=== PATIENT | female | born 1990 | race African-American/Black ===

== ENCOUNTER 2017-06-27 17:28 | Emergency (ER) | payer OTHER ==
[~2017-06-27] VITALS: Ht 166.4 cm; Wt 84.1 kg
[~2017-06-27 17:28] MED LIST: PERC5TAB12 PO
[2017-06-27 17:29] VITALS: BP 138/98; PULSE 93; RESP 16; TEMP 99.9; O2SAT 95
[2017-06-27] MEDS ORDERED: IOHEXOL 350 MG/ML 10 ML VIAL (for RAD DIAG) IVCONTRAST ONE (17:29)
--- NOTE | 2017-06-27 18:19 | RADRPT ---
EXAM DATE/TIME: 06/27/2017 17:59 [facility] COMPARISON: No previous studies available for comparison. INDICATIONS : Cough and short of breath. MEDICAL HISTORY : None. SURGICAL HISTORY : None. ENCOUNTER: Initial ACUITY: 1 week PAIN SCORE: 0/10 LOCATION: Bilateral chest FINDINGS: PA and lateral views of the chest demonstrate mild indistinctness of left hemidiaphragm could indicat e a small lingular pneumonia. The cardiomediastinal contours are unremarkable. Osseous structures a re intact. CONCLUSION: Question of peripheral infiltrate in the lingula could be a small area of pneumonia. Shimon May MD on June 27, 2017 at 18:16 Board Certified Radiologist. This report was verified electronically.
[2017-06-27 19:56] LABS: AUTOMATED NEUTROPHIL # 7.7 TH/MM3 (1.8-7.7); BASOPHIL % 0.3 % (0.0-2.0); EOSINOPHIL % 0.2 % (0.0-4.0); HEMATOCRIT 37.1 % (35.0-46.0); HEMOGLOBIN 12.3 GM/DL (11.6-15.3); LYMPH % 27.8 % (9.0-44.0); LYMPHOCYTE # 3.3 TH/MM3 (1.0-4.8); MEAN CELL VOLUME 80.6 FL (80.0-100.0); MEAN CORPUSCULAR HEMOGLOBIN 26.7 PG (27.0-34.0); MEAN CORPUSCULAR HGB CONC 33.1 % (32.0-36.0); MEAN PLATELET VOLUME 9.8 FL (7.0-11.0); MONO % 7.5 % (0.0-8.0); MONOCYTE # 0.9 TH/MM3 (0-0.9); NEUT % 64.2 % (16.0-70.0); PLATELET COUNT 174 TH/MM3 (150-450); RED CELL DISTRIBUTION WIDTH 19.6 % (11.6-17.2); WHITE BLOOD COUNT 11.9 TH/MM3 (4.0-11.0)
[2017-06-27 20:08] LABS: ALT (GPT) 53 U/L (10-53); AST (GOT) 47 U/L (15-37); BICARBONATE 27.5 MEQ/L (21.0-32.0); BLOOD UREA NITROGEN 17 MG/DL (7-18); CALCIUM 8.7 MG/DL (8.5-10.1); CHLORIDE 106 MEQ/L (98-107); CREATININE 0.94 MG/DL (0.50-1.00); GLOMERULAR FILTRATION RATE 88 ML/MIN (>89); GLUCOSE,RANDOM 88 MG/DL (74-106); SODIUM (NA) 139 MEQ/L (136-145)
[2017-06-27 20:11] LABS: ALKALINE PHOSPHATASE 56 U/L (45-117); TOTAL BILIRUBIN ADULT 0.2 MG/DL (0.2-1.0)
--- NOTE | 2017-06-27 23:52 | PD ---
HPI Chief Complaint: Cold / Flu Symptoms Time Seen by Provider: 23:30 Travel History International Travel<30 days: No Contact w/Intl Traveler<30days: No Traveled to known affect area: No History of Present Illness HPI 27-year-old female here for evaluation of cough, nasal congestion, runny nose, sore throat, nausea, vomiting, diarrhea, abdominal pain, generalized malaise, body aches. Symptoms started on 06/20/17 with upper respiratory symptoms. Since yesterday she has been having lower abdominal pain, nausea, vomiting, and diarrhea. Her cough has been productive of yellow/greenish sputum, and today she noticed some blood-streaked sputum. She denies history of DVT or PE. She does feel somewhat short of breath. No abdominal pain is described as cramping , mild to moderate, worse with movement and palpation. She denies urinary symptoms. No vaginal bleeding or discharge. LMP was 2 weeks ago. States that her sister at home had upper respiratory symptoms a couple weeks ago. Patient was initially evaluated in triage, and by the time she was brought back to an exam room, basic labs and a chest x-ray were performed. She is febrile with a tympanic temp of 99.9F. CBC is essentially unremarkable. CMP is essentially unremarkable. Influenza is negative. Group A strep is negative. Chest x-ray shows question of peripheral infiltrate in the lingula could be a small area of pneumonia. PFSH Past Medical History Diminished Hearing: No Respiratory: Yes (bronchitis) Immunizations Current: Yes Influenza Vaccination: Yes ?: Not LMP: 06/20/17 Past Surgical History Surgical History: No Previous Surgery Social History Alcohol Use: Yes (OCC) Tobacco Use: Yes Substance Use: Yes (thc) Allergies-Medications (Allergen,Severity, Reaction): Coded Allergies: Sulfa (Sulfonamide Antibiotics) (Unverified Allergy, Unknown, 06/27/17) Reported Meds & Prescriptions Reported Meds & Active Scripts Active Review of Systems Except as stated in HPI: all other systems reviewed are Neg Physical Exam Narrative GENERAL: Well-developed, well-nourished, comfortable, no apparent distress. SKIN: Focused skin assessment warm/dry. No rash. HEAD: Atraumatic. Normocephalic. EYES: Pupils equal and round. No scleral icterus. No injection or drainage. ENT: No nasal bleeding or discharge. Mucous membranes pink and dry. Normal pharynx. NECK: Trachea midline. No JVD. No nuchal rigidity. CARDIOVASCULAR: Regular rate and rhythm. No murmur appreciated. RESPIRATORY: No accessory muscle use. Clear to auscultation. Breath sounds equal bilaterally. GASTROINTESTINAL: Abdomen soft, nondistended. Moderate right lower quadrant and suprapubic tenderness without peritoneal signs. Rest of abdomen is soft and nontender. Normal bowel sounds. No hernias. MUSCULOSKELETAL: No obvious deformities. No clubbing. No cyanosis. No edema. NEUROLOGICAL: Awake and alert. No obvious cranial nerve deficits. Motor grossly within normal limits. Normal speech. PSYCHIATRIC: Appropriate mood and affect; insight and judgment normal. Data Data Last Documented VS Vital Signs Date Time Temp Pulse Resp B/P (MAP) Pulse Ox O2 Delivery O2 Flow Rate FiO2 06/27/17 17:29 99.9 93 16 138/98 (111) 95 Orders Orders Complete Blood Count With Diff (06/27/17 17:48) Comprehensive Metabolic Panel (06/27/17 17:48) Group A Rapid Strep Screen (06/27/17 17:48) Influenzae A/B Antigen (06/27/17 17:48) Chest, Pa & Lat (06/27/17 17:48) Strep Culture (Group A) (06/27/17 19:21) Electrocardiogram (06/27/17 ) Ed Urine Pregnancytest Poc (06/27/17 23:40) Creatine Kinase (Cpk) (06/27/17 23:40) Urinalysis - C+S If Indicated (06/27/17 23:49) Sodium Chlor 0.9% 1000 Ml Inj (Ns 1000 M (06/28/17 00:00) Ct Pulmonary Angiogram (06/27/17 ) Acetaminophen (Tylenol) (06/28/17 00:00) Ct Abd/Pel W Iv Contrast(Rout) (06/27/17 ) CKMB (06/28/17 00:00) CKMB% (06/28/17 00:00) Sodium Chlor 0.9% 1000 Ml Inj (Ns 1000 M (06/28/17 00:45) Ketorolac Inj (Toradol Inj) (06/28/17 00:45) Ceftriaxone Inj (Rocephin Inj) (06/28/17 01:00) Labs Laboratory Tests Test 06/27/17 19:21 06/28/17 00:00 White Blood Count 11.9 TH/MM3 Red Blood Count 4.60 MIL/MM3 Hemoglobin 12.3 GM/DL Hematocrit 37.1 % Mean Corpuscular Volume 80.6 FL Mean Corpuscular Hemoglobin 26.7 PG Mean Corpuscular Hemoglobin Concent 33.1 % Red Cell Distribution Width 19.6 % Platelet Count 174 TH/MM3 Mean Platelet Volume 9.8 FL Neutrophils (%) (Auto) 64.2 % Lymphocytes (%) (Auto) 27.8 % Monocytes (%) (Auto) 7.5 % Eosinophils (%) (Auto) 0.2 % Basophils (%) (Auto) 0.3 % Neutrophils # (Auto) 7.7 TH/MM3 Lymphocytes # (Auto) 3.3 TH/MM3 Monocytes # (Auto) 0.9 TH/MM3 Eosinophils # (Auto) 0.0 TH/MM3 Basophils # (Auto) 0.0 TH/MM3 CBC Comment DIFF FINAL Differential Comment Blood Urea Nitrogen 17 MG/DL Creatinine 0.94 MG/DL Random Glucose 88 MG/DL Total Protein 8.0 GM/DL Albumin 4.0 GM/DL Calcium Level 8.7 MG/DL Alkaline Phosphatase 56 U/L Aspartate Amino Transf (AST/SGOT) 47 U/L Alanine Aminotransferase (ALT/SGPT) 53 U/L Total Bilirubin 0.2 MG/DL Sodium Level 139 MEQ/L Potassium Level 3.6 MEQ/L Chloride Level 106 MEQ/L Carbon Dioxide Level 27.5 MEQ/L Anion Gap 6 MEQ/L Estimat Glomerular Filtration Rate 88 ML/MIN Total Creatine Kinase 961 U/L MDM Medical Decision Making Medical Screen Exam Complete: Yes Emergency Medical Condition: Yes Medical Record Reviewed: Yes Interpretation(s) EKG: Sinus, rate 64, normal axis, normal intervals, no acute ischemic abnormality. Differential Diagnosis Pneumonia, influenza, bronchitis, PE, appendicitis, UTI, cystitis, rhabdomyolysis Narrative Course Initial vital signs show heart rate 93, blood pressure 138/98, pulse ox 95% on room air, oral tympanic temp of 99.9F. CBC: WBC 11.9, hemoglobin 12.3, hematocrit 37.1, platelets 174. CMP is unremarkable. Total CK is 961 Influenza is negative. Group A strep is negative. Chest x-ray: CONCLUSION: Question of peripheral infiltrate in the lingula could be a small area of pneumonia. At approximately 1 am at the end of my shift the patient was left with my PA Anthony Dickerson to follow up with CTs and disposition. Genaro Olmstead MD Jun 27, 2017 23:52
[2017-06-28] MEDS ORDERED: ACETAMINOPHEN 325 MG TAB PO ONE
[2017-06-28] MEDS ORDERED: SODIUM CHLOR 0.9% 1000 ML INJ 1,000 ML IV ONE ×2 (00:45)
[2017-06-28] MEDS ORDERED: KETOROLAC TROMETHAMINE 30 MG/ML (IVP) VIAL IV PUSH ONE (00:45)
[2017-06-28] MEDS ORDERED: cefTRIAXone INJ 1,000 MG in SODIUM CHLORIDE 0.9% INJ 100 ML IV ONE (01:00)
--- NOTE | 2017-06-28 01:14 | RADRPT ---
EXAM DATE/TIME: 06/28/2017 00:53 [facility] COMPARISON: No previous studies available for comparison. INDICATIONS : Pneumonia versus pulmonary emboli. Pain past 5 days. IV CONTRAST: 77 cc Omnipaque 350 (iohexol) IV ; Cumulative dose for multiple exams. RADIATION DOSE: 18.23 CTDIvol (mGy) MEDICAL HISTORY : None SURGICAL HISTORY : None. ENCOUNTER: Initial ACUITY: 4 - 6 days PAIN SCALE: 10/10 LOCATION: facial TECHNIQUE: Volumetric scanning of the chest was performed using a pulmonary embolism protocol MIP images were re constructed. Using automated exposure control and adjustment of the mA and/or kV according to patien t size, radiation dose was kept as low as reasonably achievable to obtain optimal diagnostic quality images. DICOM format image data is available electronically for review and comparison. Follow-up recommendations for detected pulmonary nodules are based at a minimum on nodule size and pa tient risk factors according to Fleischner Society Guidelines. FINDINGS: Examination of the pulmonary vasculature demonstrates good filling of the main, lobar and segmental b ranches. There are no filling defects to suggest pulmonary embolism. Multiplanar reconstructions are also unremarkable. There is left lower lobe atelectasis versus pneumonia. No pulmonary nodules are identified. No pleura l effusions are identified. Examination of the mediastinum demonstrates no abnormally enlarged lymph nodes by CT criteria. No axillary or hilar abnormalities are identified. Coronary artery calcificatio ns are not present. The visualized upper abdomen demonstrates no abnormality. CONCLUSION: 1. No evidence of pulmonary embolism. 2. Left lower lobe atelectasis versus pneumonia. Rudy Wu MD on June 28, 2017 at 1:10 Board Certified Radiologist. This report was verified electronically.
--- NOTE | 2017-06-28 01:19 | RADRPT ---
EXAM DATE/TIME: 06/28/2017 00:53 [facility] COMPARISON: CT ABDOMEN & PELVIS W CONTRAST, October 29, 2014, 20:10. INDICATIONS : Abdomen pain past 5 days. IV CONTRAST: 77 cc Omnipaque 350 (iohexol) IV ; Cumulative dose for multiple exams. ORAL CONTRAST: No oral contrast ingested. RADIATION DOSE: 11.80 CTDIvol (mGy) MEDICAL HISTORY : None SURGICAL HISTORY : None. ENCOUNTER: Initial ACUITY: 4 - 6 days PAIN SCALE: 5/10 LOCATION: Bilateral abdomen TECHNIQUE: Volumetric scanning of the abdomen and pelvis was performed. Using automated exposure control and ad justment of the mA and/or kV according to patient size, radiation dose was kept as low as reasonably achievable to obtain optimal diagnostic quality images. DICOM format image data is available electro nically for review and comparison. FINDINGS: There is left lower lobe atelectasis versus pneumonia. The liver and spleen are free of focal defects . The gallbladder and pancreas demonstrate no abnormality. The adrenal glands are normal. The kidneys demonstrate no evidence of solid renal mass or hydronephrosis. No free fluid or abdominal masses are identified. No para-aortic adenopathy is seen. Examination of the pelvis demonstrates no evidence of free fluid or pelvic mass. No abnormally enlarged inguinal or retroperitoneal lymph nodes are presen t. The bladder is unremarkable. CONCLUSION: 1. No evidence of acute abdominal or pelvic process. No masses are identified. 2. Left lower lobe atelectasis versus pneumonia. Rudy Wu MD on June 28, 2017 at 1:13 Board Certified Radiologist. This report was verified electronically.
[2017-06-28] MEDS ORDERED: AZITHROMYCIN 250 MG TAB PO ONE (01:30)
[2017-06-28 01:50] LABS: BACTERIA, URINE RARE /hpf; BILIRUBIN, URINE NEG (NEG); BLOOD, URINE NEG (NEG); GLUCOSE,URINE NEG (NEG); KETONE, URINE TRACE mg/dL (NEG); MUCUS URINE FEW /lpf (OCC); NITRITE,URINE NEG (NEG); SQUAMOUS EPITHELIAL CELL URINE 5 /hpf (0-5); URINE COLOR YELLOW (YELLW/STRAW); URINE LEUKOCYTE ESTERASE NEG (NEG)
[2017-06-28] MEDS ORDERED: ZITHTAB PO (02:39)
[2017-06-28] MEDS ORDERED: ZOFR8TAB4 SL (02:39)
--- NOTE | 2017-06-28 02:42 | PD ---
Physical Exam Date Seen by Provider: Jun 28, 2017 Time Seen by Provider: 02:40 Data Data Last Documented VS Vital Signs Date Time Temp Pulse Resp B/P (MAP) Pulse Ox O2 Delivery O2 Flow Rate FiO2 06/27/17 17:29 99.9 93 16 138/98 (111) 95 Orders Orders Complete Blood Count With Diff (06/27/17 17:48) Comprehensive Metabolic Panel (06/27/17 17:48) Group A Rapid Strep Screen (06/27/17 17:48) Influenzae A/B Antigen (06/27/17 17:48) Chest, Pa & Lat (06/27/17 17:48) Strep Culture (Group A) (06/27/17 19:21) Electrocardiogram (06/27/17 ) Ed Urine Pregnancytest Poc (06/27/17 23:40) Creatine Kinase (Cpk) (06/27/17 23:40) Urinalysis - C+S If Indicated (06/27/17 23:49) Sodium Chlor 0.9% 1000 Ml Inj (Ns 1000 M (06/28/17 00:00) Ct Pulmonary Angiogram (06/27/17 ) Acetaminophen (Tylenol) (06/28/17 00:00) Ct Abd/Pel W Iv Contrast(Rout) (06/27/17 ) CKMB (06/28/17 00:00) CKMB% (06/28/17 00:00) Sodium Chlor 0.9% 1000 Ml Inj (Ns 1000 M (06/28/17 00:45) Ketorolac Inj (Toradol Inj) (06/28/17 00:45) Ceftriaxone Inj (Rocephin Inj) (06/28/17 01:00) Iohexol 350 Inj (Omnipaque 350 Inj) (06/27/17 17:29) Azithromycin (Zithromax) (06/28/17 01:30) Ondansetron Inj (Zofran Inj) (06/28/17 02:45) Labs Laboratory Tests Test 06/27/17 19:21 06/28/17 00:00 06/28/17 01:35 White Blood Count 11.9 TH/MM3 Red Blood Count 4.60 MIL/MM3 Hemoglobin 12.3 GM/DL Hematocrit 37.1 % Mean Corpuscular Volume 80.6 FL Mean Corpuscular Hemoglobin 26.7 PG Mean Corpuscular Hemoglobin Concent 33.1 % Red Cell Distribution Width 19.6 % Platelet Count 174 TH/MM3 Mean Platelet Volume 9.8 FL Neutrophils (%) (Auto) 64.2 % Lymphocytes (%) (Auto) 27.8 % Monocytes (%) (Auto) 7.5 % Eosinophils (%) (Auto) 0.2 % Basophils (%) (Auto) 0.3 % Neutrophils # (Auto) 7.7 TH/MM3 Lymphocytes # (Auto) 3.3 TH/MM3 Monocytes # (Auto) 0.9 TH/MM3 Eosinophils # (Auto) 0.0 TH/MM3 Basophils # (Auto) 0.0 TH/MM3 CBC Comment DIFF FINAL Differential Comment Blood Urea Nitrogen 17 MG/DL Creatinine 0.94 MG/DL Random Glucose 88 MG/DL Total Protein 8.0 GM/DL Albumin 4.0 GM/DL Calcium Level 8.7 MG/DL Alkaline Phosphatase 56 U/L Aspartate Amino Transf (AST/SGOT) 47 U/L Alanine Aminotransferase (ALT/SGPT) 53 U/L Total Bilirubin 0.2 MG/DL Sodium Level 139 MEQ/L Potassium Level 3.6 MEQ/L Chloride Level 106 MEQ/L Carbon Dioxide Level 27.5 MEQ/L Anion Gap 6 MEQ/L Estimat Glomerular Filtration Rate 88 ML/MIN Total Creatine Kinase 961 U/L Creatine Kinase MB 1.7 NG/ML Creatine Kinase MB % 0.2 % Urine Color YELLOW Urine Turbidity CLEAR Urine pH 6.0 Urine Specific [place] GREATER THAN 1.050 Urine Protein TRACE mg/dL Urine Glucose (UA) NEG mg/dL Urine Ketones TRACE mg/dL Urine Occult Blood NEG Urine Nitrite NEG Urine Bilirubin NEG Urine Urobilinogen LESS THAN 2.0 MG/DL Urine Leukocyte Esterase NEG Urine RBC 1 /hpf Urine WBC 1 /hpf Urine Squamous Epithelial Cells 5 /hpf Urine Bacteria RARE /hpf Urine Mucus FEW /lpf Microscopic Urinalysis Comment CULT NOT INDICATED MDM Medical Record Reviewed: Yes Supervised Visit with CATRACHITO: Yes Interpretation(s) UA: Concentrated specimen but no UTI. CBC & BMP Diagram 06/27/17 19:21 Total Protein 8.0, Albumin 4.0, Calcium Level 8.7, Alkaline Phosphatase 56, Aspartate Amino Transf (AST/SGOT) 47 H, Alanine Aminotransferase (ALT/SGPT) 53, Total Bilirubin 0.2 Last 24 hours Impressions Chest X-Ray 06/27/17 [id number] Signed Impressions: Service Date/Time: Tuesday, June 27, 2017 17:59 - CONCLUSION: Question of peripheral infiltrate in the lingula could be a small area of pneumonia. Shimon May MD CT Angiography 06/27/17 0000 Signed Impressions: Service Date/Time: Wednesday, June 28, 2017 00:53 - CONCLUSION: 1. No evidence of pulmonary embolism. 2. Left lower lobe atelectasis versus pneumonia. Rudy Wu MD Abdomen/Pelvis CT 06/27/17 0000 Signed Impressions: Service Date/Time: Wednesday, June 28, 2017 00:53 - CONCLUSION: 1. No evidence of acute abdominal or pelvic process. No masses are identified. 2. Left lower lobe atelectasis versus pneumonia. Rudy Wu MD Differential Diagnosis . Narrative Course The patient's CAT scan reveals no acute intra-abdominal process. CAT scan of the chest shows no PE but does reconfirm atelectasis versus infiltrate. With the patient's presenting symptoms we will treat for pneumonia. Patient was given Rocephin IV 1 g and Zithromax 500 mg by mouth along was Zofran 4 mg IV. This is pneumonia Diagnosis Primary Impression: acute pneumonia Patient Instructions: General Instructions Departure Forms: Tests/Procedures, Work Release Special Instructions: No work 3 days. Additional Instruction: Rest. Increase fluids. Tylenol and Advil. Robitussin-DM. Zithromax and Zofran.. Followup with your Dr. in 3-5 days. Return to the ER for any problems. Med/Other Pt SpecificInfo: Prescription(s) given Scripts Ondansetron Odt (Zofran Odt) 8 Mg Tab 8 MG SL Q8HR for Nausea/Vomiting, #6 TAB 0 Refills Prov: Genaro Olmstead MD 06/28/17 Azithromycin (Zithromax Z-Ari) 250 Mg Dspk 250 MG PO DIRECTED for Infection, #1 DSPK 0 Refills 500 MG (2 tabs) day 1, then 1 tab days 2-5. Prov: Genaro Olmstead MD 06/28/17 Disposition: 01 DISCHARGE HOME Condition: Stable Abram Martinez Jun 28, 2017 02:42
[2017-06-28] MEDS ORDERED: ONDANSETRON HCL 4 MG/2 ML VIAL IV PUSH ONE (02:45)
--- NOTE | 2017-06-28 14:03 | EKG ---
Date Performed: 06/28/2017 Time Performed: 00:26:32 PTAGE: 27 years EKG: Sinus rhythm NORMAL ECG NO PREVIOUS TRACING DOCTOR: Babatunde Chavarria Interpretating Date/Time 06/28/2017 14:01:40
== END 2017-06-28 03:09 | disposition home or self-care (01) ==
LOC: NEPD 17:28
DX: J18.9 Pneumonia, unspecified organism (principal); R11.2 Nausea with vomiting, unspecified; R19.7 Diarrhea, unspecified; Z72.0 Tobacco use
CPT/HCPCS: 71046; 71275; 74177; 80053; 81001; 82550; 82552; 84703; 85025; 87081; 87804; 87880; 93005; 96361; 96365; 96375; 99285; J0696; J1885; J2405; J7030; Q9967

== ENCOUNTER 2017-06-29 08:18 | Emergency (ER) | payer OTHER ==
[~2017-06-29] VITALS: Ht 165.1 cm; Wt 83.0 kg
[~2017-06-29 08:18] MED LIST changes: -PERC5TAB12 PO; +ZITHTAB PO; +ZOFR8TAB4 SL
[2017-06-29 08:33] VITALS: BP 135/84; PULSE 67; RESP 17; TEMP 98.5; O2SAT 99
== END 2017-06-29 09:11 | disposition left against medical advice (07) ==
LOC: NED 08:18
DX: R68.89 Other general symptoms and signs (principal)
CPT/HCPCS: 99281